=== PATIENT | female | born 1965 | race Caucasian/White ===

== ENCOUNTER 2022-07-30 10:56 | Outpatient (CLI) | payer OTHER, SELFPAY ==
[2022-07-30 14:32] LABS: Chloride* 107 mmol/L (96-114)
[2022-07-30 14:33] LABS: Sodium* 142 mmol/L (135-149)
[2022-07-30 14:34] LABS: Potassium* 4.3 mmol/L (3.6-5.1)
[2022-07-30 14:35] LABS: Cholesterol* 275 mg/dL (90-199)
[2022-07-30 14:36] LABS: Alkaline Phosphatase* 109 U/L (40-150); Aspartate Amino Transferase* 33 U/L (12-35); Bilirubin Total* 0.6 mg/dL (0.1-1.5); Blood Urea Nitrogen* 14 mg/dL (7-30); Carbon Dioxide* 28 mmol/L (20-32); Creatinine* 0.7 mg/dL (0.5-1.5); Estimated Glomerular Filt Rate 100 ml/min; Glucose* 108 mg/dL (60-115); Total Protein* 7.7 g/dL (6.0-8.3); Triglycerides* 106 mg/dL (40-149)
[2022-07-30 14:37] LABS: Alanine Aminotransferase* 28 U/L (4-35); Calcium* 10.3 mg/dL (8.4-10.6); HDL Cholesterol* 77 mg/dL (>=50); LDL Cholesterol Calculated 177 mg/dL (<100)
[2022-07-30 15:17] LABS: TSH With Reflex to FT4* < 0.015 uIU/mL (0.270-4.200)
[2022-07-30 15:45] LABS: Free T4 Free Thyroxine* 1.45 ng/dL (0.70-1.85)
== END 2022-07-30 10:57 | disposition home or self-care (01) ==
PROVIDERS: PCP Family Medicine; Visit Provider Family Medicine
DX: E78.5 Hyperlipidemia, unspecified (principal); E03.9 Hypothyroidism, unspecified; R53.83 Other fatigue; R73.03 Prediabetes
CPT/HCPCS: 80053; 80061; 84439; 84443

== ENCOUNTER 2022-08-06 15:21 | Outpatient (CLI) | payer OTHER, SELFPAY ==
[2022-08-09 23:50] LABS: Albumin 4.83 g/dL (3.75-5.01); Alpha 1 Globulin 0.27 g/dL (0.19-0.46); Alpha 2 Globulin 0.76 g/dL (0.48-1.05); Total Protein, Serum 7.5 g/dL (6.3-8.2)
== END 2022-08-06 15:22 | disposition home or self-care (01) ==
PROVIDERS: PCP Family Medicine; Visit Provider Family Medicine
DX: R77.8 Other specified abnormalities of plasma proteins (principal)
CPT/HCPCS: 84165; 86334

== ENCOUNTER 2023-08-12 11:01 | Outpatient (CLI) | payer OTHER, SELFPAY | END 2023-08-12 11:02 | disposition home or self-care (01) | LOC: NFLDREF 08-14 05:54 | PROVIDERS: PCP Family Medicine; Referring Provider Family Medicine; Visit Provider Family Medicine | DX: E03.9 Hypothyroidism, unspecified (principal); R73.03 Prediabetes; E78.5 Hyperlipidemia, unspecified | CPT/HCPCS: 80053; 80061; 84443 ==

== ENCOUNTER 2023-10-17 10:39 | Outpatient (CLI) | payer OTHER, SELFPAY | END 2023-10-17 10:40 | disposition home or self-care (01) | LOC: NFLDREF 10-30 11:48 | PROVIDERS: PCP Family Medicine; Referring Provider Family Medicine; Visit Provider Family Medicine | DX: E11.9 Type 2 diabetes mellitus without complications (principal); E78.5 Hyperlipidemia, unspecified | CPT/HCPCS: 80061; 82043; 82570 ==

== ENCOUNTER 2023-11-04 14:10 | Outpatient (CLI) | payer OTHER, SELFPAY | END 2023-11-04 14:11 | disposition home or self-care (01) | LOC: NFLDREF 11-05 10:43 | PROVIDERS: PCP Family Medicine; Referring Provider Family Medicine; Visit Provider Family Medicine | DX: Z79.899 Other long term (current) drug therapy (principal) | CPT/HCPCS: 80048 ==

== ENCOUNTER 2023-11-25 12:47 | Outpatient (CLI) | payer OTHER, SELFPAY ==
--- OUTSIDE RECORDS SUMMARY | 2023-11-25 12:53 | XMS_ITS | Clinical Summary ---
Author Name Unknown Organization [employer] [facility] Address [place], [place] [address] Care Team Providers Care Hospitalist Nocturnist Physician Name Role Phone Unavailable Primary Care Provider Unavailabl e Allergies Active Allergy Reactions Criticality Noted Date Comments Hydrocodone-Acetaminophen Nausea And Vomiting 0 01/04/2009 Medications Medication Sig Dispensed Refills Start Date End Date Status levothyroxine (SYNTHROID) 150 mcg tabletIndications:Hypo thyroidism, unspecified type TAKE 1 TABLET BY MOUTH BEFORE BREAKFAST. 90 tablet 1 11/05/2016 Active Active Problems Problem Noted Date Diagnosed Date Pre-diabetes 10/24/2010 Unspecified hypothyroidism 01/27/2008 Immunizations Name Administration Dates Next Due Tdap 12/17/2013 Tdap, Unspecified 12/20/1998 Family History Medical History Relation Name Comments Hyperlipidemia Brother 3 Unknown Father Good Health Mother Hyperlipidemia Mother Diabetes Paternal Grandmother Stroke Paternal Grandmother Thyroid Disease Sister 2 hypothyroid Cancer-breast No Family History Relation Name Status Comments Brother 1 Alive Brother 2 Alive Brother 3 Father Alive Maternal Grandfather OR Maternal Grandmother old age Mother Alive Paternal Grandfather unknow Paternal Grandmother diabete s, obese Sister 1 Alive Sister 2 Social History Tobacco Use Types Packs/Day Years Used Date Smoking Tobacco: Former Cigarettes Q uit: 08/18/1984 Smokeless Tobacco: Never Tobacco Cessation:Counseling Given: Yes Comments:some in high school Alcohol Use Standard Drinks/Week Comments Yes 0 (1 standard drink = 0.6 oz pure alcohol) glass of wine 2-3 times per week Sex and Gender Information Value Date Recorded Sex Assigned at Not on file Gender Identity Not on file Sexual Orientation Not on file Obstetrics History Para Term AB IAB SAB Ectopic Multiple Livin g Live Births 1 0 Date Outcome GA Total Labor Labor/2nd/3rd Weight Sex Delivery Anes PTL Michelle A1 A5 Name Cl in Current Last Filed Vital Signs Vital Sign Reading Time Taken Comments Blood Pressure 121/82 05/20/2016 10:10 AM CDT Pulse 80 05/20/2016 10:10 AM CDT Temperature 37 ??C (98.6 ??F) 10/10/2011 8:13 AM IMPORT/EXPORT ANALYST Respiratory Rate 18 02/27/2010 1:14 PM CDT Oxygen Saturation 97% 10/10/2011 8:13 AM IMPORT/EXPORT ANALYST Inhaled Oxygen Concentration - - Weight 83.5 kg (184 lb) 05/20/2016 10:10 AM CDT Height 171.4 cm (5' 7.48) 05/20/2016 10:10 AM C DT Body Mass Index 28.41 05/20/2016 10:10 AM CDT Plan of Treatment Health Maintenance Due Date Last Done Comments Hepatitis C screening for ag e 18-79 1982 Colonoscopy through age 75 2009 Mammogram for age 45-75 10/10/2012 10/10/2011 Lipids for age 45-75 01/18/2013 01/19/2008 Zoster (shingles) series for age 50+ (1 of 2) 2014 BMI (ht and wt on same day) for age 18+ 05/20/2017 05/20/2016 Depression screening for age 12+ 05/20/2017 05/20/2016, 05/20/2016 Pap test for age 21-65 03/26/2020 7, 03/26/2017, 08/31/2009 COVID-19 vaccine series (2022-24 season) 2023 Tetanus booster 12/18/2023 12/17/2013, 12/20/1998 Influenza for age 50-64 04/18/2024 HIV for age 15-65 Completed 08/31/2009 Tdap Completed 12/17/2013, 12/20/1998 Pneumococcal series for age 6-64 Aged Out No longer eligible b ased on patient's age to complete this topic Procedures Procedure Name Priority Date/Time Associated Diagnosis Comments DOCTOR OF NURSE ANESTHESIA THIN PREP PAP SCREEN IMAGED Routine 03/26/2017 1:30 PM CDT XR MAMMO BILAT SCREEN FFDM W JOVON (IA) Routine 10/10/2011 10:02 AM IMPORT/EXPORT ANALYST Other screening mammogram ANTI HIV 1/2 Routine 08/31/2009 3:44 PM IMPORT/EXPORT ANALYST Screening for STDs (Sexually Transmitted Diseases) LIPID PANEL Routine 01/19/2008 7:35 AM CDT Screening Lipid Disorders from Last 3 Months or Most Recently Relevant to Health Maintenance Results * DOCTOR OF NURSE ANESTHESIA THIN PREP PAP SCREEN IMAGED (03/26/2017 1:30 PM CDT) Case Report Gynecologic Cytology Report ? Case: [id number] ? Authorizing Provider: ??Marnie English MD ??Collected: ? 03/26/2017 1330 ? First Screen: ?Ana Krishann ?Received: ?03/27/2017 0950 ? Specimen: ?DOCTOR OF NURSE ANESTHESIA ThinPrep Vial Screening, Cervical/Vaginal ? 04/03/2017 7:40 AM CDT [facility]) LABORATORY-C ENTRAL LABORATORY INTERPRETATION/ RESULT NEGATIVE FOR INTRAEPITHELIAL LESION OR MALIGNANCY (NIL) (none) 04/03/2017 7:40 AM CDT [facility]-C ENTRAL LABORATORY IMEN ADEQUACY Satisfactory for evaluation Endocervical cells cannot be evaluated due to severe atrophy 04/03/2017 7:40 AM CDT [facility]) LABORATORY-C ENTRAL LABORATORY HPV REQUEST HPV and PAP 04/03/2017 7:40 AM CDT [facility]- ENTROR LABORATORY Menstrual Status Postmenopausal 04/03/2017 7:40 AM CDT [facility] Automated Review Successful 04/03/2017 7:40 AM T [facility] Comment:Specimen processed s uccessfully by automated rebeamer device, SearcheezePrep Imaging System, [employer] ANCILLARY TESTING DOCTOR OF NURSE ANESTHESIA HPV Ordered, Please see separate report 04/03/2017 7:40 AM T [facility] Note The pap test is a screening technique, not a diagnostic procedure. ??It is used primarily to screen for squamous cancers and precursor lesions. ??Published studies have shown that it is subject to both false negative and false positive results. ??The pap test should not be used as the sole means to diagnose or exclude pre-malignant and malignant lesions. Interpreted at [facility] (Central Lab, [facility], [facility], [facility], [facility], [facility], [facility]) 04/03/2017 7:40 AM T [facility] Other (Cervical/Vagina l) 03/26/2017 1:30 PM CDT 03/27/2017 9:50 AM CDT Marnie English MD PATHOLOGY/CYTOLO GY [facility]-CENTRAL LABORATORY [address] [place] [address], * XR MAMMO BILAT SCREEN FFDM W JOVON (10/10/2011 10:02 AM IMPORT/EXPORT ANALYST) Anatomical Region Laterality Modality BREASTS, Breast Left, Breast Right Bilateral Mammography Impressions 10/11/2011 12:32 PM IMPORT/EXPORT ANALYST ??There is no radiographic evidence for malignancy. ??Recommend annual mammograms. A lay language report of this examination will be provided to the patient. MAMMOGRAM ASSESSMENT: ??ACR 2 Benign Narrative 10/11/2011 12:32 PM IMPORT/EXPORT ANALYST XR MAMMO BILAT SCREEN FFDM W JOVON [G0202.5] CLINICAL HISTORY: ??This is an asymptomatic 46 y.o. patient. INDICATION FOR EXAM: Mammogram Screening. TECHNIQUE: CC & MLO views were obtained. ??This digital study was evaluated with the assistance of Computer-Aided Detection. ?? COMPARISON FILMS: Priors not available at the time of this report. FINDINGS: ??Mammographically, the breast tissue is extremely dense. ??This may lower the sensitivity of mammography (>75% glandular). ??No suspicious masses or microcalcifications. ??Implant(s) within both breasts and Benign appearing calcifications within both breasts. Procedure Note Guille Bangura, - 10/11/2011 XR MAMMO BILAT SCREEN FFDM W JOVON [G0202.5] CLINICAL HISTORY: This is an asymptomatic 46 y.o. patient. INDICATION FOR EXAM: Mammogram Screening. TECHNIQUE: CC & MLO views were obtained. This digital study was evaluatedwith the assistance of Computer-Aided Detection. COMPARISON FILMS: Priors not available at the time of this report. FINDINGS: Mammographically, the breast tissue is extremely dense. Thismay lower the sensitivity of mammography (>75% glandular). No suspiciousmasses or microcalcifications. Implant(s) within both breasts and Benignappearing calcifications within both breasts. IMPRESSION: There is no radiographic evidence for malignancy. Recommendannual mammograms. A lay language report of this examination will be provided to the patient. MAMMOGRAM ASSESSMENT: ACR 2 Benign Breana ALEJO MAMMO * HIV (08/31/2009 3:44 PM IMPORT/EXPORT ANALYST) ANTI HIV 1/2 Non-reacti ve [facility] Blood specimen (specimen) BLOOD SPECIMEN / Unknown 08/31/2009 3:44 PM IMPORT/EXPORT ANALYST 08/31/2009 3:39 PM IMPORT/EXPORT ANALYST Clarice Carty NP SEND OUTS [facility]ORATORY INTERNAL ZIP [id number] [address] * (ABNORMAL) LIPID PANEL (01/19/2008 7:35 AM CDT) CHOLESTEROL,TOTAL 208(H) 110 - 199 mg/dL [facility] TRIGLYCERIDES 77 <150 mg/dL [facility] HDL CHOLESTEROL 66 >40 mg/dL [facility] CHOL/HDL RATIO 3.15 <4.51 [facility] LDL CHOLESTEROL 127 <131 mg/dL [facility] PATIENT STATUS Fasting [facility] Blood specimen (specimen) BLOOD SPECIMEN / Unknown 01/19/2008 7:35 AM CDT 01/19/2008 7:29 AM CDT Clarice Carty NP CHEMISTRY [facility] [address] [place] [address] from Last 3 Months or Most Recently Relevant to Health Maintenance
--- NOTE | 2023-11-25 13:20 | MM_ITS ---
Patient: RIKY MAC Facility:?[facility] Patient ID:?[id number] Site Patient ID:?[id number]. Site :?[id number] Study:?XRay-Breast Bilateral 3D screening mammogram w/cad & I-11/25/2023 1:30:34 PM Ordering Physician:Melissa Final Report: BILATERAL SCREENING MAMMOGRAM WITH COMPUTER-AIDED DETECTION AND TOMOSYNTHESIS TECHNIQUE: CC and MLO views were obtained. These mammographic images have been obtained using full-field digital technique. These mammographic images were interpreted with the benefit of computer-aided detection. Breast Tomosynthesis was used in this interpretation. COMPARISON FILM: 08/29/20, 04/11/17, 10/10/11. FINDINGS: The breasts are heterogeneously dense, which may obscure small masses. IMPRESSION: There is no radiographic evidence for malignancy. ASSESSMENT: BI-RADS Category 2: Benign RECOMMENDATION: Routine screening mammogram in 1 year. A lay language report of this examination will be provided to the patient. Dax Enriquez M.D. Diagnostic Radiologist [employer] [facility] [email or web address] DSM/sp R& Transcribed: 4:32 p.m. SP/Dictated by: Dax Enriquez MD @ 11/26/2023 11:11:00 AM Signed by:Tomy Enriquez MD @11/27/2023 5:30:10 AM (Electronic Signature)
== END 2023-11-25 12:48 | disposition home or self-care (01) ==
LOC: MAMMO 12:48
PROVIDERS: PCP Family Medicine; Visit Provider Family Medicine
DX: Z12.31 Encounter for screening mammogram for malignant neoplasm of breast (principal); R92.2 Inconclusive mammogram
CPT/HCPCS: 77063; 77067

== ENCOUNTER 2024-04-21 11:00 | Outpatient (CLI) | payer OTHER, SELFPAY ==
--- OUTSIDE RECORDS SUMMARY | 2024-04-25 14:37 | XMS_ITS | Clinical Summary ---
Author Organization [employer] [facility] Address [place], [place] [address] Care Team Providers Care Transfer Coordinator Name Role Phone Unavailable Primary Care Provider [...] Alive Brother 3 Father Alive Maternal Grandfather [place] Maternal Grandmother old age Mother Alive Paternal [...] Outcome GA Total Labor Labor/2nd/3rd Weight Sex Type Anes PTL Michelle A1 A5 Name Clin Current Last Filed Vital Signs Vital Sign Reading Time Taken Comments Blood Pressure 121/82 05/20/2016 10:10 AM CDT Pulse 80 05/20/2016 10:10 AM CDT Temperature 37 ??C (98.6 ??F) 10/10/2011 8:13 AM DAIRY HUSBANDRY WORKER Respiratory Rate 18 02/27/2010 1:14 PM CDT Oxygen Saturation 97% 10/10/2011 8:13 AM DAIRY HUSBANDRY WORKER Inhaled Oxygen Concentration - - Weight 83.5 [...] for age 21-65 03/26/2020 7, 03/26/2017, 08/31/2009 Tetanus booster 12/18/2023 12/17/2013, 12/20/1998 COVID-19 vaccine series ( season) 2024 Influenza for age 50-64 04/18/2024 HIV for age 15-65 Completed 08/31/2009 Tdap Completed 12/17/2013, 12/20/1998 Pneumococcal series for age 6-64 Aged Out No longer eligible b ased on patient's age to complete this topic Procedures Procedure Name Priority Date/Time Associated Diagnosis Comments GAS MASK INSPECTOR THIN PREP PAP SCREEN IMAGED Routine 03/26/2017 1:30 PM CDT XR MAMMO BILAT SCREEN FFDM W JOVON (IA) Routine 10/10/2011 10:02 AM DAIRY HUSBANDRY WORKER Other screening mammogram ANTI HIV 1/2 Routine 08/31/2009 3:44 PM DAIRY HUSBANDRY WORKER Screening for STDs (Sexually Transmitted Diseases) LIPID PANEL Routine 01/19/2008 7:35 AM CDT Screening Lipid Disorders from Last 3 Months or Most Recently Relevant to Health Maintenance Results * GAS MASK INSPECTOR THIN PREP PAP SCREEN IMAGED (03/26/2017 1:30 PM CDT) Case Report Gynecologic Cytology Report ? Case: [id number] ? Authorizing Provider: ??Marnie English MD ??Collected: ? 03/26/2017 1330 ? First Screen: ?Ana Krishnan ?Received: ?03/27/2017 0950 ? Specimen: ?GAS MASK INSPECTOR ThinPrep Vial Screening, Cervical/Vaginal ? 04/03/2017 7:40 AM CDT [facility] [employer] [facility] LABORATORY-C ENTRAL LABORATORY INTERPRETATION/ RESULT NEGATIVE FOR INTRAEPITHELIAL LESION OR MALIGNANCY (NIL) (none) 04/03/2017 7:40 AM CDT [facility] ENTRAL LABORATORY IMEN ADEQUACY Satisfactory for evaluation Endocervical cells cannot be evaluated due to severe atrophy 04/03/2017 7:40 AM CDT [facility] LABORATORY-C ENTRAL LABORATORY HPV REQUEST HPV and PAP 04/03/2017 7:40 AM CDT [facility] Menstrual Status Postmenopausal 04/03/2017 7:[address] [facility] Automated Review Successful 04/03/2017 7:[address] [facility] Comment:Specimen processed s uccessfully by automated sales stock associate device, MONTAJPrep Imaging System, [employer] ANCILLARY TESTING GAS MASK INSPECTOR HPV Ordered, Please see separate report 04/03/2017 7:[address] [facility] Note The pap test is a screening technique, not a diagnostic procedure. ??It is used primarily to screen for squamous cancers and precursor lesions. ??Published studies have shown that it is subject to both false negative and false positive results. ??The pap test should not be used as the sole means to diagnose or exclude pre-malignant and malignant lesions. Interpreted at [facility] (Central Lab, [facility], [facility], [facility], [facility], [facility], [facility]) 04/03/2017 7:[address] [facility] Other (Cervical/Vagina l) 03/26/2017 1:30 PM CDT 03/27/2017 9:50 AM CDT Marnie English MD PATHOLOGY/CYTOLO GY [facility]-CENTRAL LABORATORY [address] [place] [address], [place] * XR MAMMO BILAT SCREEN FFDM W JOVON (10/10/2011 10:02 AM DAIRY HUSBANDRY WORKER) Anatomical Region Laterality Modality BREASTS, Breast Left, Breast Right Bilateral Mammography Impressions 10/11/2011 12:32 PM DAIRY HUSBANDRY WORKER ??There is no radiographic evidence for malignancy. ??Recommend annual mammograms. A lay language report of this examination will be provided to the patient. MAMMOGRAM ASSESSMENT: ??ACR 2 Benign Narrative 10/11/2011 12:32 PM DAIRY HUSBANDRY WORKER XR MAMMO BILAT SCREEN FFDM W JOVON [...] within both breasts. Procedure Note Guille Bangura, DO - 10/11/2011 XR MAMMO BILAT SCREEN FFDM [...] ALEJO MAMMO * HIV (08/31/2009 3:44 PM DAIRY HUSBANDRY WORKER) ANTI HIV 1/2 Non-reacti ve [facility] Blood specimen (specimen) BLOOD SPECIMEN / Unknown 08/31/2009 3:44 PM DAIRY HUSBANDRY WORKER 08/31/2009 3:39 PM DAIRY HUSBANDRY WORKER Clarice Carty NP SEND OUTS [facility]OR[facility] INTERNAL ZIP [phone] [address] * (ABNORMAL) LIPID PANEL (01/19/2008 7:35 AM CDT) Pathologist [facility] CHOLESTEROL,TOTAL 208(H) 110 - 199 mg/dL [facility] TRIGLYCERIDES 77 <150 mg/dL [facility] HDL CHOLESTEROL 66 >40 mg/dL [facility] CHOL/HDL RATIO 3.15 <4.51 [facility] LDL CHOLESTEROL 127 <131 mg/dL [facility] PATIENT STATUS Fasting [facility] Blood specimen (specimen) BLOOD SPECIMEN / Unknown 01/19/2008 7:35 AM CDT 01/19/2008 7:29 AM CDT Clarice Carty NP CHEMISTRY [facility] [address] [place] [address] from Last 3 Months or Most Recently Relevant to Health Maintenance
== END 2024-04-21 11:01 | disposition home or self-care (01) ==
LOC: NFLDREF 04-25 14:34
PROVIDERS: PCP Family Medicine; Referring Provider Family Medicine; Visit Provider Family Medicine
DX: E11.29 Type 2 diabetes mellitus with other diabetic kidney complication (principal); R80.9 Proteinuria, unspecified; E78.5 Hyperlipidemia, unspecified
CPT/HCPCS: 80053; 80061; 82043; 82570

== ENCOUNTER 2024-05-11 12:33 | Outpatient (CLI) | payer OTHER, SELFPAY ==
--- OUTSIDE RECORDS SUMMARY | 2024-05-11 12:35 | XMS_ITS | Clinical Summary ---
Author Organization [employer] [facility] Address [place], [place] [address] Care Team Providers Care Paint Roller Covermaker Name Role Phone Unavailable Primary Care Provider [...] Diagnosed Date Pre-diabetes 10/24/2010 Unspecified hypothyroidism 01/27/2008 Comments Yes Immunizations Name Administration Dates Next Due Tdap 12/17/2013 Tdap, Unspecified 12/20/1998 Family History Medical History Relation Name Comments Hyperlipidemia Brother 3 Unknown Father Good Health Mother Hyperlipidemia Mother Diabetes Paternal Grandmother Stroke Paternal Grandmother Thyroid Disease Sister 2 hypothyroid Cancer-breast No Family History Relation Name Status Comments Brother 1 Alive Brother 2 Alive Brother 3 Father Alive Maternal Grandfather [place] Maternal Grandmother old age Mother Alive Paternal [...] glass of wine 2-3 times per week Comments Yes Sex and Gender Information Value Date Recorded [...] 37 ??C (98.6 ??F) 10/10/2011 8:13 AM STARCH AND PROSIZE MIXER Respiratory Rate 18 02/27/2010 1:14 PM CDT Oxygen Saturation 97% 10/10/2011 8:13 AM STARCH AND PROSIZE MIXER Inhaled Oxygen Concentration - - Weight 83.5 kg (184 lb) 05/20/2016 10:10 AM CDT Height 171.4 cm (5' 7.48) 05/20/2016 10:10 AM C DT Body Mass Index 28.41 05/20/2016 10:10 AM CDT Plan of Treatment Upcoming Encounters Date Type Department Care Team (Late st Contact Info) Description 05/11/2024 1:00 PM CDT Ancillary Procedure [facility] & [address] [address] Health Maintenance Due Date Last Done Comments [...] 12/18/2023 12/17/2013, 12/20/1998 COVID-19 vaccine series ( - season) 2024 Influenza for age 50-64 04/18/2024 RSV vaccine for adults or (1 - 1-dose 60+ series) 2024 HIV for age 15-65 Completed 08/31/2009 Tdap Completed 12/17/2013, 12/20/1998 Pneumococcal series for age 6-64 Aged Out No longer eligible b ased on patient's age to complete this topic Procedures Procedure Name Priority Date/Time Associated Diagnosis Comments PICTURE FRAME MAKER THIN PREP PAP SCREEN IMAGED Routine 03/26/2017 1:30 PM CDT XR MAMMO BILAT SCREEN FFDM W JOVON (IA) Routine 10/10/2011 10:02 AM STARCH AND PROSIZE MIXER Other screening mammogram ANTI HIV 1/2 Routine 08/31/2009 3:44 PM STARCH AND PROSIZE MIXER Screening for STDs (Sexually Transmitted Diseases) LIPID PANEL Routine 01/19/2008 7:35 AM CDT Screening Lipid Disorders from Last 3 Months or Most Recently Relevant to Health Maintenance Results * PICTURE FRAME MAKER THIN PREP PAP SCREEN IMAGED (03/26/2017 1:30 PM CDT) Case Report Gynecologic Cytology Report ? Case: [id number] ? Authorizing Provider: ??Marnie English MD ??Collected: ? 03/26/2017 1330 ? First Screen: ?Ana Krishnan ?Received: ?03/27/2017 0950 ? Specimen: ?PICTURE FRAME MAKER ThinPrep Vial Screening, Cervical/Vaginal ? 04/03/2017 7:40 AM CDT [facility] LABORATORY-C ENTRAL LABORATORY INTERPRETATION/ RESULT NEGATIVE FOR INTRAEPITHELIAL LESION OR MALIGNANCY (NIL) (none) 04/03/2017 7:40 AM CDT [facility] IMEN ADEQUACY Satisfactory for evaluation Endocervical cells cannot be evaluated due to severe atrophy 04/03/2017 7:40 AM CDT [facility] HPV REQUEST HPV and PAP 04/03/2017 7:40 AM CDT [facility] Menstrual Status Postmenopausal 04/03/2017 7:40 AM CDT [facility] Automated Review Successful 04/03/2017 7:40 AM CDT [facility] Comment:Specimen processed s uccessfully by automated paper machine operator device, hetrasPrep Imaging System, [employer] ANCILLARY TESTING PICTURE FRAME MAKER HPV Ordered, Please see separate report 04/03/2017 7:40 AM CDT [facility] Note The pap test is a screening technique, not a diagnostic procedure. ??It is used primarily to screen for squamous cancers and precursor lesions. ??Published studies have shown that it is subject to both false negative and false positive results. ??The pap test should not be used as the sole means to diagnose or exclude pre-malignant and malignant lesions. Interpreted at [facility] (Central Lab, [facility], [facility], [facility], [facility], [facility], [facility]) 04/03/2017 7:40 AM CDT [facility] Other (Cervical/Vagina l) 03/26/2017 1:30 PM CDT 03/27/2017 9:50 AM CDT Marnie English MD [facility] [address] [place] [address], * XR MAMMO BILAT SCREEN FFDM W JOVON (10/10/2011 10:02 AM STARCH AND PROSIZE MIXER) Anatomical Region Laterality Modality BREASTS, Breast Left, Breast Right Bilateral Mammography Impressions 10/11/2011 12:32 PM STARCH AND PROSIZE MIXER ??There is no radiographic evidence for malignancy. ??Recommend annual mammograms. A lay language report of this examination will be provided to the patient. MAMMOGRAM ASSESSMENT: ??ACR 2 Benign Narrative 10/11/2011 12:32 PM STARCH AND PROSIZE MIXER XR MAMMO BILAT SCREEN FFDM W JOVON [...] ALEJO MAMMO * HIV (08/31/2009 3:44 PM STARCH AND PROSIZE MIXER) ANTI HIV 1/2 Non-reacti ve [facility] Blood specimen (specimen) BLOOD SPECIMEN / Unknown 08/31/2009 3:44 PM STARCH AND PROSIZE MIXER 08/31/2009 3:39 PM STARCH AND PROSIZE MIXER Clarice Carty NP SEND OUTS [facility] INTERNAL ZIP [phone] [address] * (ABNORMAL) LIPID PANEL (01/19/2008 7:35 AM CDT) CHOLESTEROL,TOTAL 208(H) 110 - 199 mg/dL [facility] TRIGLYCERIDES 77 <150 mg/dL [facility] HDL CHOLESTEROL 66 >40 mg/dL [facility] CHOL/HDL RATIO 3.15 <4.51 [facility] LDL CHOLESTEROL 127 <131 mg/dL [facility] PATIENT STATUS Fasting [facility] Blood specimen (specimen) BLOOD SPECIMEN / Unknown 01/19/2008 7:35 AM CDT 01/19/2008 7:29 AM CDT Clarice Carty NP CHEMISTRY [facility] [address] [place] [address] from Last 3 Months or Most Recently Relevant to Health Maintenance
[2024-05-11 13:50] VITALS: BP 150/83; PULSE 92; RESP 18
--- NOTE | 2024-05-11 14:45 | W.PM.STED ---
Stress Test Note Date Date Seen: 05/11/24 Date of test: 05/11/24 Providers Primary care provider: Marnie English Stress test physician: Fernando Sepulveda Stress Test Note Stress test ordered: Stress Echo Indication for test: Dyspnea on exertion Results discussion: This pleasant 58-year-old female presents for the above test, after discussion the risks benefits and side effects she would like to proceed. Cardiac stress test medical history form is reviewed. Pretest EKG shows normal sinus rhythm with a ventricular rate of 82 and a blood pressure 154/95. No acute ST wave changes are noted. Standard Nelson protocol is employed over a time course of 7 minutes and 38 seconds, achieved a metabolic equivalent of 9.1 Mets. Maximum heart rate was 157 which is 114% of the target. Conditioning was felt to be excellent, she had no chest pain, or shortness of breath notable during the test. She felt however that her muscles failed her overall. Review of the tracing did not show any ST wave changes suggestive of ischemia there were no dysrhythmias Impression: Negative electrographic portion of stress echo, subjectively negative Follow up suggested: Await echo images clinical correlation will be needed with these, patient recovered normally, and left this testing facility in good condition.
== END 2024-05-11 12:34 | disposition home or self-care (01) ==
LOC: STRESS 12:33
PROVIDERS: PCP Family Medicine; Visit Provider Family Medicine
DX: R06.09 Other forms of dyspnea (principal)
CPT/HCPCS: 93016; 93325; 93351

== ENCOUNTER 2025-02-10 11:28 | Outpatient (CLI) | payer OTHER, SELFPAY | END 2025-02-10 11:29 | disposition home or self-care (01) | LOC: NFLDREF 02-14 15:15 | PROVIDERS: PCP Family Medicine; Referring Provider Family Medicine; Visit Provider Family Medicine | DX: E78.5 Hyperlipidemia, unspecified (principal); E03.9 Hypothyroidism, unspecified; E11.29 Type 2 diabetes mellitus with other diabetic kidney complication; R80.9 Proteinuria, unspecified | CPT/HCPCS: 80053; 80061; 82043; 82570; 84439; 84443 ==

== ENCOUNTER 2025-02-22 14:37 | Outpatient (CLI) | payer OTHER, SELFPAY ==
[2025-02-24 04:47] LABS: HPV Source Cervix
== END 2025-02-22 14:38 | disposition home or self-care (01) ==
PROVIDERS: PCP Family Medicine; Visit Provider Physician Assistant
DX: Z12.4 Encounter for screening for malignant neoplasm of cervix (principal); Z11.51 Encounter for screening for human papillomavirus (HPV)
CPT/HCPCS: 87624; 87625; 88141; 88142